=== PATIENT | male | born 1940 | race Caucasian/White ===

== ENCOUNTER 2016-07-08 12:27 | Inpatient (IN) | payer BC ==
--- NOTE | ~2016-07-08 | OP ---
Record Of Operation [facility] [address] [place]. [address] NAME: GALINDO TYLER : 40 STATUS : ADM IN PAT#: [id number] AGE: 75 ADM/REG DATE : 07/08/16 MR#: [id number] REPORT SERV DATE: 07/10/16 DICTATED BY: SETH JOSE DATE: 07/10/16 REPORT STATUS : Draft TRANSCRIBED BY: MODL DATE: 07/10/16 DATE OF PROCEDURE: CARDIOVERSION REPORT INDICATIONS: This is a 75-year-old male with recurrent atypical atrial flutter and rapid ventricular response. He has been on chronic therapeutic anticoagulation with an INR of 2 to 3 for over 4 years. FREDDY not requested. Informed consent was obtained, signed and on the chart prior to proceeding. A time-out was performed and sedation was per Anesthesia. CARDIOVERSION: A single synchronized 200 joule biphasic energy shock was delivered with the pads in the anterior-posterior position. Atypical atrial flutter with rapid ventricular response was successfully cardioverted after a single attempt to sinus rhythm at 80 beats per minute with an underlying left bundle-branch block. COMPLICATIONS: None. CONCLUSION: Successful cardioversion from atypical atrial flutter to sinus rhythm. MANI/FRANCES Seth Jose M.D. / [id number] CC: Ivan Colin M.D.
--- NOTE | ~2016-07-08 | HP ---
History And Physical [id number] [place]. [address] NAME: GALINDO CREWS : 40 STATUS : ADM IN [facility]#: [id number] AGE: 75 ADM/REG DATE : 07/08/16 MR#: [id number] REPORT SERV DATE: 07/08/16 DICTATED BY: DATE: REPORT STATUS : Draft TRANSCRIBED BY: MODL DATE: 07/08/16 DATE OF ADMISSION: 07/08/2016 CHIEF COMPLAINT/REASON FOR ADMISSION: Atrial flutter with rapid ventricular response. HISTORY OF PRESENT ILLNESS: Mr. Crews is a very pleasant 75-year-old gentleman with a past medical history significant for atrial flutter with rapid ventricular response and bioprosthetic mitral valve replacement. He is maintained chronically on sotalol 40 mg twice a day and Jantoven 5 mg once a day. He states that he felt well when he went to bed last night. He checks his heart rate regularly, and his heart rate was normal yesterday. He got up in the middle of the night and felt warm and got to drink water and then went back to bed and when he got up this morning and checked his heart rate, he noticed his heart rate was elevated up to 148 beats a minute. He contacted the nurse on-call and was directed to come to the emergency department for evaluation. He has not had any chest pain or shortness of breath. He does get mildly short of breath if he exerts himself. He has not had any syncopal episodes. He denies orthopnea, paroxysmal nocturnal dyspnea, or lower extremity edema. PAST MEDICAL HISTORY: 1. History of atrial flutter with rapid ventricular response. Last cardioversion performed on 11/05/2013. 2. History of prosthetic mitral valve replacement for endocarditis. 3. Hypertension. SOCIAL HISTORY: The patient does not smoke, drink, or use extracurricular drugs. FAMILY HISTORY: Noncontributory. ALLERGIES: NO KNOWN DRUG ALLERGIES. OUTPATIENT MEDICATIONS: Include: 1. Hydrochlorothiazide 25 mg p.o. daily. 2. Sotalol 40 mg twice per day. 3. Jantoven 5 mg p.o. daily. REVIEW OF SYSTEMS: All systems were reviewed and are negative, except for as dictated in the HPI. PHYSICAL EXAMINATION: VITAL SIGNS: Blood pressure 122/83, pulse 144 beats per minute, respirations 20, oxygen saturations 95% on room air, weight is 195 pounds. GENERAL: Mr. Crews is a well-groomed, well-appearing 75-year-old gentleman, in no distress. NECK: No jugular venous distention or carotid bruits. HEART: Tachycardic, regular. I could not appreciate murmurs, rubs, or gallops. LUNGS: Clear to auscultation in all pérez. History And Physical [address] [address] NAME: GALINDO CREWS : 40 STATUS : ADM IN [facility]#: [id number] AGE: 75 ADM/REG DATE : 07/08/16 MR#: [id number] REPORT SERV DATE: 07/08/16 DICTATED BY: DATE: REPORT STATUS : Draft TRANSCRIBED BY: MODL DATE: 07/08/16 ABDOMEN: Obese. There is no abdominal wall edema. Bowel sounds are normal. EXTREMITIES: Warm and well perfused. There is no pitting edema. MUSCULOSKELETAL: No clubbing or cyanosis of the digits. NEUROLOGIC: I could not appreciate any focal neurologic deficit. REVIEW OF TEST RECORDS AND MEDICAL DECISION MAKING: An EKG performed in the emergency department showed a left bundle-branch block with a QRS duration of 126 milliseconds. The patient was in atrial flutter with rapid ventricular response. LABORATORY RESULTS: Note a hemoglobin of 15.2 and hematocrit of 44.6, platelet count 186. INR 2.2. Potassium 3.8, BUN 19, creatinine 1.32. Troponin 0.03. TSH is 1.5. Chest x-ray performed on admission documented no evidence of acute cardiopulmonary disease. IMPRESSION REPORT AND PLAN: 1. Paroxysmal atrial flutter with recurrence. 2. Hypertension. 3. History of mitral valve replacement secondary to endocarditis. RECOMMENDATIONS: 1. I discussed the risks and benefits of direct current cardioversion with the patient and he is agreeable to proceed on 07/10/2016. 2. I agree with diltiazem drip as previously ordered in the emergency department. 3. We will continue the patient's sotalol and Jantoven at this time. 4. Additional recommendations pending clinical course. DANISH/FRANCES Tammy Ballesteros M.D. / [id number] CC: Ivan Colin M.D.
[~2016-07-08 12:27] MED LIST: ASAB PO; BETAPACE80 PO; C5 PO; COREG6 PO; HYDROCHLOROT25 MG PO; JANTOVEN5 MG PO; JANTOVEN6 MG PO; LOVENOX1C SC; NORCO1 TA2 PO
[2016-07-08 12:29] LABS: BASOPHILS 0.4 %; BASOPHILS ABSOLUTE 0.03 10/3/uL (0.0-0.16); EOSINOPHILS 2.6 %; EOSINOPHILS ABSOLUTE 0.19 10/3/uL (0.0-0.53); HEMATOCRIT 44.6 % (40.0-51.0); HEMOGLOBIN 15.2 g/dL (13.6-17.8); IMMATURE GRANULOCYTES 0.3 %; IMMATURE GRANULOCYTES ABSOLUTE 0.02 10/3/uL (0.0-0.11); LYMPHOCYTES 12.2 %; LYMPHOCYTES ABSOLUTE 0.88 10/3/uL (0.67-4.30); MEAN CORPUS HGB CONC 34.1 g/dL (32.0-36.0); MEAN CORPUSCULAR HEMOGLOB 31.1 pg (26.0-34.0); MEAN CORPUSCULAR VOLUME 91.2 fL (80-100); NEUTROPHILS 73.5 %; NEUTROPHILS ABSOLUTE 5.32 10/3/uL (2.02-8.40); PLATELET COUNT 186 10/3/uL (150-400); RBC DISTRIBUTION WIDTH 13.1 % (12.0-16.0); RED CELL COUNT 4.89 10/6/uL (4.7-6.1); WHITE BLOOD CELLS 7.2 10/3/uL (4.5-10.5)
[2016-07-08 12:33] LABS: MANUAL DIFF NO %
[2016-07-08 12:37] LABS: INTERNATIONAL NORMAL RATI 2.2 UNITS (-); PARTIAL THROMBO TIME 36.4 SEC (22.5-37.2)
[2016-07-08 12:38] LABS: PROTIME (NOT ORD) 24.4 SEC (12.0-14.5)
[2016-07-08 12:49] LABS: BUN (BLOOD UREA NITROGEN) 19 MG/DL (6-23); CALCIUM, SERUM 8.9 MG/DL (8.5-10.4); CHEST PAIN PROFILE TAT 0 Hrs 24 Mins; CHLORIDE, SERUM 103 MMOL/L (96-112); CO2 (CARBON DIOXIDE) 30 MMOL/L (24-34); CREATININE 1.32 MG/DL (0.70-1.30); GFR AFRICAN AMERICAN 61 ML/MIN (>=60); GFR NON AFRICAN AMERICAN 52 ML/MIN (>=60); POTASSIUM, SERUM 3.8 MMOL/L (3.5-5.3); SODIUM, SERUM 140 MMOL/L (135-148); TROPONIN I 0.03 NG/ML (<0.05)
[2016-07-08 12:50] LABS: GLUCOSE, SERUM 193 MG/DL (60-99)
[2016-07-08 14:52] LABS: ASCORBIC ACID (UR NOT ORDER) NEG (NEG); BILIRUBIN, URINE NEGATIVE (NEG); ER URINALYSIS TAT 0 Hrs 09 Mins; KETONE, URINE NEGATIVE (NEG); LEUKOCYTE ESTERASE(NOT OR NEG (NEG); NITRITE (URINE) NEG (NEG); WBC (NOT ORDERED) (RFLEX) < 1 (0-5)
[2016-07-08] MEDS ORDERED: BETAPACE80 PO (15:24)
[2016-07-08] MEDS ORDERED: JANTOVEN5 MG PO (15:24)
[2016-07-08] MEDS ORDERED: HYDROCHLOROT25 MG PO (15:24)
[2016-07-09 07:28] LABS: INTERNATIONAL NORMAL RATI 2.1 UNITS (-); PROTIME (NOT ORD) 23.6 SEC (12.0-14.5)
[2016-07-09 08:13] LABS: BUN (BLOOD UREA NITROGEN) 20 MG/DL (6-23); CALCIUM, SERUM 8.5 MG/DL (8.5-10.4); CHLORIDE, SERUM 106 MMOL/L (96-112); CO2 (CARBON DIOXIDE) 26 MMOL/L (24-34); CREATININE 1.22 MG/DL (0.70-1.30); GFR AFRICAN AMERICAN 67 ML/MIN (>=60); GFR NON AFRICAN AMERICAN 58 ML/MIN (>=60); POTASSIUM, SERUM 3.8 MMOL/L (3.5-5.3); SODIUM, SERUM 140 MMOL/L (135-148); TROPONIN I 0.04 NG/ML (<0.05)
[2016-07-09 08:14] LABS: GLUCOSE, SERUM 125 MG/DL (60-99)
[2016-07-10 05:09] LABS: BASOPHILS 0.3 %; BASOPHILS ABSOLUTE 0.03 10/3/uL (0.0-0.16); EOSINOPHILS 1.7 %; EOSINOPHILS ABSOLUTE 0.17 10/3/uL (0.0-0.53); HEMATOCRIT 42.2 % (40.0-51.0); HEMOGLOBIN 14.6 g/dL (13.6-17.8); IMMATURE GRANULOCYTES 0.4 %; IMMATURE GRANULOCYTES ABSOLUTE 0.04 10/3/uL (0.0-0.11); LYMPHOCYTES 12.6 %; LYMPHOCYTES ABSOLUTE 1.23 10/3/uL (0.67-4.30); MEAN CORPUS HGB CONC 34.6 g/dL (32.0-36.0); MEAN CORPUSCULAR HEMOGLOB 30.7 pg (26.0-34.0); MEAN CORPUSCULAR VOLUME 88.8 fL (80-100); MEAN PLATELET VOLUME 9.4 fL (9.2-13.0); MONOCYTES ABSOLUTE 0.88 10/3/uL (0.21-1.20); NEUTROPHILS ABSOLUTE 7.43 10/3/uL (2.02-8.40); PLATELET COUNT 171 10/3/uL (150-400); RBC DISTRIBUTION WIDTH 13.4 % (12.0-16.0); RED CELL COUNT 4.75 10/6/uL (4.7-6.1); WHITE BLOOD CELLS 9.8 10/3/uL (4.5-10.5)
[2016-07-10 05:12] LABS: MANUAL DIFF NO %
[2016-07-10 05:16] LABS: INTERNATIONAL NORMAL RATI 2.4 UNITS (-); PROTIME (NOT ORD) 26.2 SEC (12.0-14.5)
[2016-07-10 05:22] LABS: BUN (BLOOD UREA NITROGEN) 23 MG/DL (6-23); CHLORIDE, SERUM 110 MMOL/L (96-112); CO2 (CARBON DIOXIDE) 24 MMOL/L (24-34); CREATININE 1.14 MG/DL (0.70-1.30); GFR AFRICAN AMERICAN 73 ML/MIN (>=60); GFR NON AFRICAN AMERICAN 63 ML/MIN (>=60); GLUCOSE, SERUM 122 MG/DL (60-99); POTASSIUM, SERUM 4.1 MMOL/L (3.5-5.3); SODIUM, SERUM 143 MMOL/L (135-148)
[2016-07-10 05:23] LABS: CALCIUM, SERUM 8.4 MG/DL (8.5-10.4)
== END 2016-07-10 18:34 | disposition home or self-care (01) | DRG 310 ==
LOC: ER 12:27 → 5NO 15:31
PROVIDERS: Emergency Medicine; Internal Medicine
PROC: 5A2204Z Restoration of Cardiac Rhythm, Single (ICD-10-PCS; principal; 2016-07-08)
DX: I48.92 Unspecified atrial flutter (principal); I44.7 Left bundle-branch block, unspecified; Z95.2 Presence of prosthetic heart valve; I10 Essential (primary) hypertension
CPT/HCPCS: 71010; 80048; 81001; 83735; 84443; 84484; 85025; 85610; 85730; 92960; 93005; 96374; 99285; A9270-GY; G0378; J0153